=== PATIENT | female | born 1935 | race American Indian/Alaskan Native ===

== ENCOUNTER 2019-06-18 14:03 | Emergency (ER) | payer MEDICARE ==
--- NOTE | 2019-06-18 14:45 | Event Note ---
ED Screening Note Date of service: 06/18/19 Time: 14:44 ED Screening Note: 84 y o female presents with head pain s/p fall [place] post office 1 hr ago head hit the floor no loc This initial assessment/diagnostic orders/clinical plan/treatment(s) is/are subject to change based on patients health status, clinical progression and re- assessment by fellow clinical providers in the ED. Further treatment and workup at subsequent clinical providers discretion. Patient/guardian urged not to elope from the ED as their condition may be serious if not clinically assessed and managed. Initial orders include: main side eval
--- NOTE | 2019-06-18 15:43 | Cat Scan Report ---
CT head/brain wo con INDICATION / CLINICAL INFORMATION: 84 years Female; fall/head pain. TECHNIQUE: Routine CT head without contrast. All CT scans at this location are performed using CT dos e reduction for ALARA by means of automated exposure control. COMPARISON: None. FINDINGS: BRAIN / INTRACRANIAL CONTENTS: No acute hemorrhage, mass effect, midline shift, hydrocephalus, or acu te, large territorial infarct. Mild cerebral and cerebellar atrophy. There are areas of decreased attenuation in the white matter of the cerebral hemispheres. These are n onspecific findings and may be related to microangiopathy (hypertension, diabetes, atherosclerosis), given the patient's age. It might be difficult to evaluate for small areas of ischemia without diffus ion imaging by MRI. CRANIOCERVICAL JUNCTION: No significant abnormality. ORBITS: No significant abnormality of visualized orbits. SINUSES / MASTOIDS: There is mild mucosal thickening in the ethmoids. There is also mild mucosal thic kening in the inferior mastoids on the right. ADDITIONAL FINDINGS: Subcutaneous soft tissue swelling seen in the posterior parietal region, slightl y leftward of midline. No signs of underlying calvarial fracture appreciated. Atherosclerotic disease is seen in the anterior circulation. IMPRESSION: 1. No focal mass, hemorrhage, hydrocephalus, or acute, large territorial infarct. Signer Name: Randy Maldonado MD, III Signed: 06/18/2019 3:39 PM Workstation Name: [id number]
[2019-06-18] MEDS ORDERED: ACETAMINOPHEN 325 MG TAB PO ONE (18:37)
--- NOTE | 2019-06-18 18:40 | Emergency Department Report ---
HPI - General Chief Complaint: Fall Time Seen by Provider: 06/18/19 18:17 - HPI HPI: 84-year-old after an active female presents to the emergency department with complaint of a headache to the back of the head after having a fall while at the post office about 1 hour prior to arrival. The patient says that she tripped on some type of an area rug and fell backwards hitting her head. She denies any loss of consciousness. She was seen by [facility] and evaluated but she chose not to arrived by EMS. She was driven in by an employee at the post office. She denies any neck pain, back pain, joint pain, laceration, nausea, vision change, chest pain or shortness of breath. She has a past medical history of hypertension. She did not take anything for her symptoms prior to arrival today. ED Past Medical Hx - Past Medical History Previous Medical History?: Yes Hx Hypertension: Yes - Surgical History Past Surgical History?: No - Social History Smoking Status: Never Smoker Substance Use Type: Prescribed ED Review of Systems ROS: Stated complaint: HEAD PAIN Other details as noted in HPI Comment: All other systems reviewed and negative Constitutional: denies: chills, fever Eyes: denies: eye pain, vision change ENT: denies: ear pain, throat pain Respiratory: denies: cough, shortness of breath Cardiovascular: denies: chest pain, palpitations Gastrointestinal: denies: abdominal pain, vomiting Genitourinary: denies: dysuria, discharge Musculoskeletal: denies: back pain, arthralgia Skin: denies: rash, lesions Neurological: headache. denies: weakness, numbness, paresthesias Physical Exam - Physical Exam Vital Signs: Vital Signs 06/18/19 14:15 Temperature 98 F Pulse Rate 78 Respiratory 18 Rate Blood Pressure 169/57 O2 Sat by Pulse 99 Oximetry Physical Exam: GENERAL: The patient is well-developed well-nourished. HEENT: Normocephalic. Patient has moist mucous membranes. There is mild tenderness to palpation to the posterior scalp with patient has a very small area of swelling. Non-expanding. EYES: Extraocular motions are intact. Pupils equal react to light bilaterally. NECK: Supple. Trachea is midline. No midline tenderness to palpation, step-off or deformity. CHEST/LUNGS: Clear to auscultation. There is no respiratory distress noted. HEART/CARDIOVASCULAR: Regular. There is no tachycardia. There is no gallop rub or murmur. ABDOMEN: Abdomen is soft, nontender. Patient has normal bowel sounds. There is no abdominal distention. SKIN: Skin is warm and dry. NEURO: The patient is awake, alert, and oriented. The patient is cooperative. The patient has no focal neurologic deficits. The patient has normal speech. Cranial nerves II through XII grossly intact. No facial asymmetry. No pronator drift or dysmetria. MUSCULOSKELETAL: There is no tenderness or deformity. There is no limitation range of motion. There is no evidence of acute injury. ED Course Vital Signs 06/18/19 14:15 Temperature 98 F Pulse Rate 78 Respiratory 18 Rate Blood Pressure 169/57 O2 Sat by Pulse 99 Oximetry ED Medical Decision Making - Radiology Data Radiology results: report reviewed CT scan of the head without contrast does not show any mass, shift, hydrocephalus, edema or large territorial infarct or bleed. - Medical Decision Making This patient presents to the emergency department with the complaint of a mild posterior headache after a mechanical fall prior to arrival. There was no loss of consciousness. She has no other physical complaints at this time. CT scan of the head did not show any mass, bleed, shift, ischemia, fracture, or any other acute process. She does not have any focal, motor sensory deficits in her cranial nerves are intact. Patient was seen ambulatory upon discharge and both appears and feels stable. Instructed to follow-up with her PCP and return to the ER if any worsening of her symptoms or any acute distress. - Differential Diagnosis skull fracture, brain bleed, hematoma, scalp contusion Critical Care Time: No Critical care attestation.: If time is entered above; I have spent that time in minutes in the direct care of this critically ill patient, excluding procedure time. ED Disposition Clinical Impression: Fall Qualifiers: Encounter type: initial encounter Qualified Code(s): W19.XXXA - Unspecified fall, initial encounter Head injury Qualifiers: Encounter type: initial encounter Qualified Code(s): S09.90XA - Unspecified injury of head, initial encounter Disposition: - TO HOME OR SELFCARE Is pt being admited?: No Condition: Stable Instructions: Fall Prevention for Older Adults (ED), Minor Head Injury (ED) Additional Instructions: Please follow-up with your primary care physician in the next few days. Return to the emergency Department with any worsening of her symptoms or with any acute distress. Referrals: Primary Care Provider, Your [Other] - 2-3 Days Time of Disposition: 18:40
[2019-06-18 19:08] VITALS: BP 159/68
== END 2019-06-18 19:16 | disposition home or self-care (01) ==
LOC: ED 14:03
DX: S09.90XA Unspecified injury of head, initial encounter (principal); I10 Essential (primary) hypertension; W19.XXXA Unspecified fall, initial encounter; Y93.89 Activity, other specified; Y92.89 Other specified places as the place of occurrence of the external cause; Y99.8 Other external cause status
CPT/HCPCS: 70450